=== PATIENT | female | born 1990 | race African-American/Black ===

== ENCOUNTER 2016-04-09 14:41 | Emergency (ER) | payer BC, MEDICAID ==
[~2016-04-09] VITALS: Ht 170.2 cm; Wt 77.3 kg
[~2016-04-09 14:41] MED LIST: AMOXICILLIN 50500 MG PO; CLEOCIN HC150 MG/CAP PO; FLEXERIL 1010 MG/TAB PO; MIRENA52 MG IU; MOTRIN 800800 MG/TAB PO; NAPROSYN500 MG PO; NO HOME MEDICATIONS; NORCO 325 MG-51 TAB PO; NORCO 325 MG-7.1 TAB PO; PEN-VEE K500 MG PO; PERCOCET 325 MG1 TA2 PO; PHENERGAN 25 TA25 MG PO; PRENATAL1 TA1 PO; TAMIFLU 75MG75 MG PO; ULTRAM 50MG TAB50 MG PO
[2016-04-09 14:42] VITALS: BP 143/99; TEMP 100
[2016-04-09 15:16] LABS: INFLUENZA B NEGATIVE
[2016-04-09] MEDS ORDERED: ZITHROMAX Z PA250 MG PO (15:32)
[2016-04-09 15:44] VITALS: PULSE 98
== END 2016-04-09 15:45 | disposition home or self-care (01) ==
LOC: COL.ER 14:41
PROVIDERS: Physician Assistant
DX: J18.9 Pneumonia, unspecified organism (principal); J45.909 Unspecified asthma, uncomplicated; F17.210 Nicotine dependence, cigarettes, uncomplicated

== ENCOUNTER 2016-05-08 17:52 | Emergency (ER) | payer BC, MEDICAID ==
[~2016-05-08] VITALS: Ht 170.2 cm; Wt 79.5 kg
[~2016-05-08 17:52] MED LIST changes: +ZITHROMAX Z PA250 MG PO
[2016-05-08 17:55] VITALS: TEMP 98.6
[2016-05-08] MEDS ORDERED: NORCO 325 MG-51 TAB PO (18:28)
[2016-05-08] MEDS ORDERED: AMOXICILLIN 50500 MG PO (18:28)
[2016-05-08 18:30] VITALS: BP 128/99; PULSE 73
== END 2016-05-08 18:34 | disposition home or self-care (01) ==
LOC: COL.ER 17:52
DX: S02.5XXA Fracture of tooth (traumatic), initial encounter for closed fracture (principal)

== ENCOUNTER 2016-05-17 00:50 | Emergency (ER) | payer BC, MEDICAID ==
[~2016-05-17] VITALS: Ht 170.2 cm; Wt 79.5 kg
[2016-05-17 00:58] VITALS: BP 129/89; TEMP 99.4
[2016-05-17 03:12] VITALS: PULSE 76
[2016-05-18] MEDS ORDERED: DOXYCYCLINE HY100 MG PO (13:09)
== END 2016-05-17 03:12 | disposition home or self-care (01) ==
LOC: COL.ER 00:50
DX: S93.402A Sprain of unspecified ligament of left ankle, initial encounter (principal); W10.8XXA Fall (on) (from) other stairs and steps, initial encounter; Y92.008 Other place in unspecified non-institutional (private) residence as the place of occurrence of the external cause

== ENCOUNTER 2016-05-18 11:53 | Emergency (ER) | payer BC, MEDICAID ==
[~2016-05-18] VITALS: Ht 170.2 cm; Wt 79.5 kg
[2016-05-18 12:00] VITALS: BP 136/87; PULSE 104; TEMP 98.8
[2016-05-18] MEDS ORDERED: DOXYCYCLINE HY100 MG PO (13:09)
== END 2016-05-18 13:28 | disposition home or self-care (01) ==
LOC: COL.ER 11:53
DX: S71.112A Laceration without foreign body, left thigh, initial encounter (principal); X99.1XXA Assault by knife, initial encounter; Z23 Encounter for immunization

== ENCOUNTER 2016-06-01 15:51 | Emergency (ER) | payer BC, MEDICAID ==
[~2016-06-01 15:51] MED LIST changes: +DOXYCYCLINE HY100 MG PO
[2016-06-01 15:58] VITALS: BP 129/87; PULSE 120; TEMP 101.2
[2016-06-01] MEDS ORDERED: AMOXICILLIN 8751 TAB PO (17:25)
== END 2016-06-01 16:28 | disposition home or self-care (01) ==
LOC: COL.ER 15:51
DX: S71.112D Laceration without foreign body, left thigh, subsequent encounter (principal)

== ENCOUNTER 2016-06-01 15:55 | Emergency (ER) | payer BC, MEDICAID ==
[~2016-06-01] VITALS: Ht 170.2 cm; Wt 79.5 kg
[2016-06-01 15:58] VITALS: TEMP 101.2
[2016-06-01 16:40] LABS: BASO % 0.2 % (0.0-2.0); EOS % 0.9 % (0-4.0); GRAN # 2.9 (1.4-6.5); GRAN % 62.6 % (42.2-75.2); HEMATOCRIT 41.9 % (37.0-47.0); HEMOGLOBIN 13.9 g/dl (12.5-16.0); LYMPH # 1.1 (1.2-3.4); LYMPH % 23.1 % (20.0-51.0); MEAN CELL VOLUME 94 fl (80.0-100.0); MEAN CORPUSCULAR HEMOGLOBIN 31 pg (27.0-31.0); MEAN CORPUSCULAR HGB CONC 33 g/dl (33.0-37.0); MEAN PLATELET VOLUME 9.6 fl (7.4-10.4); MONO # 0.6 (0.1-0.6); PLATELET COUNT 240 K/mm3 (130-400); RED BLOOD COUNT 4.48 M/mm3 (4.10-5.30); REDCELL DISTRIBUTION WIDTH-CV 13.4 % (11.5-14.5); WHITE BLOOD COUNT 4.6 K/mm3 (4.8-10.8)
[2016-06-01 16:48] LABS: ADJUSTED CALCIUM 9.1 mg/dL (8.4-10.2); ALBUMIN 3.7 gm/dL (3.5-5.0); BILIRUBIN,TOTAL 0.6 mg/dL (0.0-1.0); CALCIUM 8.9 mg/dL (8.4-10.2); CREATININE, serum 0.85 mg/dL (0.52-1.25); POTASSIUM 3.5 mmol/L (3.4-5.0); TOTAL PROTEIN 6.8 gm/dL (6.4-8.2)
[2016-06-01] MEDS ORDERED: AMOXICILLIN 8751 TAB PO (17:25)
[2016-06-01 17:36] LABS: INFLUENZA B NEGATIVE
[2016-06-01 18:18] VITALS: BP 110/78; PULSE 90
== END 2016-06-01 18:19 | disposition home or self-care (01) ==
LOC: COL.ER 15:55
PROVIDERS: Family Medicine
DX: J18.9 Pneumonia, unspecified organism (principal); J20.9 Acute bronchitis, unspecified; J45.909 Unspecified asthma, uncomplicated; R00.0 Tachycardia, unspecified
CPT/HCPCS: J0696; J2930; J7030

== ENCOUNTER 2016-07-18 02:43 | Emergency (ER) | payer BC, MEDICAID ==
[~2016-07-18] VITALS: Ht 170.2 cm; Wt 84.1 kg
[~2016-07-18 02:43] MED LIST changes: +AMOXICILLIN 8751 TAB PO
[2016-07-18 02:45] VITALS: BP 128/77; TEMP 98
[2016-07-18] MEDS ORDERED: PEN-VEE K500 MG PO (04:30)
[2016-07-18] MEDS ORDERED: TYLENOL W/COD1 UDTAB PO (04:30)
[2016-07-18] MEDS ORDERED: VOLTAREN 75 DR75 MG PO (04:30)
[2016-07-18 04:40] VITALS: PULSE 85
== END 2016-07-18 04:40 | disposition home or self-care (01) ==
LOC: COL.ER 02:43
DX: K08.89 Other specified disorders of teeth and supporting structures (principal)

== ENCOUNTER 2016-07-26 14:19 | Emergency (ER) | payer BC, MEDICAID ==
[~2016-07-26] VITALS: Ht 170.2 cm; Wt 84.1 kg
[~2016-07-26 14:19] MED LIST changes: +TYLENOL W/COD1 UDTAB PO; +VOLTAREN 75 DR75 MG PO
[2016-07-26 14:22] VITALS: BP 105/64; PULSE 100; TEMP 98.7
== END 2016-07-26 15:36 | disposition left against medical advice (07) ==
LOC: COL.ER 14:19
DX: M79.672 Pain in left foot (principal); Z53.21 Procedure and treatment not carried out due to patient leaving prior to being seen by health care provider

== ENCOUNTER 2016-08-03 09:31 | Emergency (ER) | payer BC, MEDICAID ==
[~2016-08-03] VITALS: Ht 170.2 cm; Wt 84.1 kg
[2016-08-03 09:40] VITALS: BP 116/55; TEMP 98.6
[2016-08-03 13:58] VITALS: PULSE 82
[2016-08-03] MEDS ORDERED: NORCO 325 MG-51 TAB PO (21:12)
== END 2016-08-03 14:00 | disposition home or self-care (01) ==
LOC: COL.ER 09:31
DX: S90.852A Superficial foreign body, left foot, initial encounter (principal); W22.8XXA Striking against or struck by other objects, initial encounter; S93.402A Sprain of unspecified ligament of left ankle, initial encounter; X50.1XXA Overexertion from prolonged static or awkward postures, initial encounter; Y92.830 Public park as the place of occurrence of the external cause

== ENCOUNTER 2016-08-03 20:37 | Emergency (ER) | payer BC, MEDICAID ==
[~2016-08-03] VITALS: Ht 170.2 cm; Wt 84.1 kg
[2016-08-03 20:48] VITALS: BP 135/83; PULSE 101; TEMP 98.8
[2016-08-03] MEDS ORDERED: NORCO 325 MG-51 TAB PO (21:12)
== END 2016-08-03 21:24 | disposition home or self-care (01) ==
LOC: COL.ER 20:37
DX: S90.852D Superficial foreign body, left foot, subsequent encounter (principal); W45.8XXD Other foreign body or object entering through skin, subsequent encounter

== ENCOUNTER 2017-04-12 12:03 | Emergency (ER) | payer SELFPAY ==
[~2017-04-12] VITALS: Ht 170.2 cm; Wt 75.0 kg
[2017-04-12 12:47] LABS: INFLUENZA A NEGATIVE; INFLUENZA B NEGATIVE
[2017-04-12 13:53] VITALS: TEMP 98.1
[2017-04-12 14:43] LABS: BASO # 0.1 (0.0-0.2); BASO % 0.5 % (0.0-2.0); EOS # 1.2 (0.0-0.7); EOS % 12.4 % (0-4.0); GRAN # 4.6 (1.4-6.5); GRAN % 49.3 % (42.2-75.2); HEMATOCRIT 45.2 % (37.0-47.0); LYMPH # 2.9 (1.2-3.4); MEAN CELL VOLUME 96 fl (80.0-100.0); MEAN CORPUSCULAR HEMOGLOBIN 32 pg (27.0-31.0); MEAN CORPUSCULAR HGB CONC 33 g/dl (33.0-37.0); MEAN PLATELET VOLUME 10.8 fl (7.4-10.4); MONO # 0.6 (0.1-0.6); MONO % 6.6 % (1.7-9.3); PLATELET COUNT 234 K/mm3 (130-400); REDCELL DISTRIBUTION WIDTH-CV 14.6 % (11.5-14.5)
[2017-04-12 14:59] LABS: ALBUMIN 4.9 gm/dL (3.5-5.0); BILIRUBIN,TOTAL 0.9 mg/dL (0.0-1.0); CALCIUM 9.9 mg/dL (8.4-10.2); CREATININE, serum 0.6 mg/dL (0.52-1.25); POTASSIUM 4.3 mmol/L (3.4-5.0)
[2017-04-12 15:18] VITALS: BP 117/84; PULSE 99
== END 2017-04-12 15:21 | disposition home or self-care (01) ==
LOC: COL.ER 12:03
PROVIDERS: Physician Assistant
DX: J11.1 Influenza due to unidentified influenza virus with other respiratory manifestations (principal); F17.210 Nicotine dependence, cigarettes, uncomplicated; Z98.890 Other specified postprocedural states
CPT/HCPCS: J7030

== ENCOUNTER 2017-11-03 11:12 | Emergency (ER) | payer SELFPAY ==
[~2017-11-03] VITALS: Ht 170.2 cm; Wt 68.2 kg
[2017-11-03 11:26] VITALS: TEMP 98.2
[2017-11-03 11:51] LABS: BASO # 0.1 (0.0-0.2); BASO % 0.4 % (0.0-2.0); EOS # 1.8 (0.0-0.7); EOS % 13.8 % (0-4.0); GRAN # 8.5 (1.4-6.5); GRAN % 63.7 % (42.2-75.2); HEMATOCRIT 40.8 % (37.0-47.0); HEMOGLOBIN 14.1 g/dl (12.5-16.0); LYMPH # 2.2 (1.2-3.4); LYMPH % 16.3 % (20.0-51.0); MEAN CELL VOLUME 94 fl (80.0-100.0); MEAN CORPUSCULAR HEMOGLOBIN 32 pg (27.0-31.0); MEAN CORPUSCULAR HGB CONC 35 g/dl (33.0-37.0); MEAN PLATELET VOLUME 9.9 fl (7.4-10.4); MONO # 0.7 (0.1-0.6); MONO % 5.5 % (1.7-9.3); PLATELET COUNT 249 K/mm3 (130-400); RED BLOOD COUNT 4.35 M/mm3 (4.10-5.30); REDCELL DISTRIBUTION WIDTH-CV 12.7 % (11.5-14.5)
[2017-11-03 12:02] LABS: ALBUMIN 4.2 gm/dL (3.5-5.0); BILIRUBIN,TOTAL 0.4 mg/dL (0.0-1.0); CALCIUM 8.7 mg/dL (8.4-10.2); CREATININE, serum 0.65 mg/dL (0.52-1.25); POTASSIUM 3.4 mmol/L (3.4-5.0); TOTAL PROTEIN 7.7 gm/dL (6.4-8.2)
[2017-11-03 14:01] LABS: COLLECTION METHOD CLEAN CATCH
[2017-11-03 14:07] LABS: MUCOUS Present /lpf; PH 5 (5-8); SQUAMOUS EPITHELIAL 0-2 /hpf; URINE APPEARANCE Clear; URINE BACTERIA None Seen /hpf; URINE BILIRUBIN Negative (NEGATIVE); URINE BLOOD Negative (NEGATIVE); URINE COLOR Yellow; URINE GLUCOSE Negative (NEGATIVE); URINE KETONE Negative (NEGATIVE); URINE LEUKOCYTE ESTERASE Negative (NEGATIVE); URINE NITRATE Negative (NEGATIVE); URINE PROTEIN(semi-quant) Negative (NEGATIVE); URINE RBC 0-2 /hpf; URINE UROBILINOGEN Negative (NEGATIVE)
[2017-11-03 14:57] VITALS: BP 126/80; PULSE 99
[2017-11-03] MEDS ORDERED: PROAIR HFA0.09 MG/AC IH (14:57)
== END 2017-11-03 14:55 | disposition home or self-care (01) ==
LOC: COL.ER 11:12
PROVIDERS: Emergency Medicine
DX: O20.9 Hemorrhage in early pregnancy, unspecified (principal); O99.511 Diseases of the respiratory system complicating pregnancy, first trimester; J45.909 Unspecified asthma, uncomplicated; Z98.890 Other specified postprocedural states; Z3A.01 Less than 8 weeks gestation of pregnancy
CPT/HCPCS: J7030

== ENCOUNTER 2017-11-05 08:17 | Emergency (ER) | payer SELFPAY ==
[~2017-11-05] VITALS: Ht 170.2 cm; Wt 70.5 kg
[~2017-11-05 08:17] MED LIST changes: +PROAIR HFA0.09 MG/AC IH
[2017-11-05 08:21] VITALS: BP 115/78; TEMP 98.8
[2017-11-05] MEDS ORDERED: AMOXICILLIN 8751 TAB PO (10:00)
[2017-11-05 10:12] VITALS: PULSE 98
== END 2017-11-05 10:13 | disposition home or self-care (01) ==
LOC: COL.ER 08:17
DX: J20.9 Acute bronchitis, unspecified (principal); J32.9 Chronic sinusitis, unspecified; J45.909 Unspecified asthma, uncomplicated

== ENCOUNTER 2017-11-12 12:03 | Emergency (ER) | payer SELFPAY ==
[~2017-11-12] VITALS: Ht 170.2 cm; Wt 72.7 kg
[2017-11-12 12:12] VITALS: BP 123/86; TEMP 98.9
[2017-11-12 13:23] LABS: BASO % 0.5 % (0.0-2.0); EOS # 0.3 (0.0-0.7); EOS % 4.7 % (0-4.0); GRAN # 4.1 (1.4-6.5); GRAN % 56.2 % (42.2-75.2); HEMOGLOBIN 12.2 g/dl (12.5-16.0); LYMPH # 2.4 (1.2-3.4); LYMPH % 32.7 % (20.0-51.0); MEAN CELL VOLUME 95 fl (80.0-100.0); MEAN CORPUSCULAR HEMOGLOBIN 32 pg (27.0-31.0); MEAN CORPUSCULAR HGB CONC 34 g/dl (33.0-37.0); MEAN PLATELET VOLUME 9.3 fl (7.4-10.4); MONO # 0.4 (0.1-0.6); MONO % 5.6 % (1.7-9.3); PLATELET COUNT 292 K/mm3 (130-400); RED BLOOD COUNT 3.79 M/mm3 (4.10-5.30); REDCELL DISTRIBUTION WIDTH-CV 13.2 % (11.5-14.5)
[2017-11-12 13:42] LABS: CALCIUM 8.1 mg/dL (8.4-10.2); CREATININE, serum 0.62 mg/dL (0.52-1.25); POTASSIUM 3.6 mmol/L (3.4-5.0)
[2017-11-12 14:48] VITALS: PULSE 75
== END 2017-11-12 14:48 | disposition home or self-care (01) ==
LOC: COL.ER 12:03
PROVIDERS: Emergency Medicine
DX: O03.9 Complete or unspecified spontaneous abortion without complication (principal)

== ENCOUNTER 2018-06-02 08:21 | Emergency (ER) | payer SELFPAY ==
[~2018-06-02] VITALS: Ht 170.2 cm; Wt 77.3 kg
[2018-06-02 08:24] VITALS: BP 112/72
[2018-06-02] MEDS ORDERED: TYLENOL 500MG500 MG PO (08:31)
[2018-06-02] MEDS ORDERED: NAPROSYN 2250 MG/TAB PO (08:32)
[2018-06-02] MEDS ORDERED: TYLENOL 325MG325 MG PO (08:36)
[2018-06-02] MEDS ORDERED: NAPROSYN500 MG PO (08:36)
[2018-06-02 10:08] VITALS: PULSE 69; TEMP 97.3
== END 2018-06-02 10:08 | disposition home or self-care (01) ==
LOC: COL.ER 08:21
DX: J10.1 Influenza due to other identified influenza virus with other respiratory manifestations (principal); J45.909 Unspecified asthma, uncomplicated; F17.210 Nicotine dependence, cigarettes, uncomplicated

== ENCOUNTER 2020-06-01 21:45 | Emergency (ER) | payer MEDICAID ==
[~2020-06-01] VITALS: Ht 172.7 cm; Wt 100.0 kg
[~2020-06-01 21:45] MED LIST changes: +NAPROSYN 2250 MG/TAB PO; +TYLENOL 325MG325 MG PO; +TYLENOL 500MG500 MG PO
[2020-06-01 21:48] VITALS: BP 207/115; TEMP 98.2
[2020-06-01] MEDS ORDERED: VALIUM 2MG T2 MG/TAB PO (21:54)
[2020-06-01] MEDS ORDERED: ZOLOFT 25MG25 MG PO (21:54)
[2020-06-01] MEDS ORDERED: AMBIEN 5MG TABLE5 MG PO (21:55)
[2020-06-01] MEDS ORDERED: ABILIFY5 MG PO (21:55)
[2020-06-01 22:07] LABS: COLLECTION METHOD CLEAN CATCH
[2020-06-01 22:12] LABS: PH 7 (5-8); SQUAMOUS EPITHELIAL 0-2 /hpf; URINE APPEARANCE Clear; URINE BACTERIA Rare /hpf; URINE BILIRUBIN Negative (NEGATIVE); URINE BLOOD Negative (NEGATIVE); URINE COLOR Yellow; URINE GLUCOSE Negative (NEGATIVE); URINE KETONE Negative (NEGATIVE); URINE LEUKOCYTE ESTERASE Negative (NEGATIVE); URINE NITRATE Negative (NEGATIVE); URINE PROTEIN(semi-quant) Negative (NEGATIVE); URINE RBC None Seen /hpf; URINE UROBILINOGEN Negative (NEGATIVE)
[2020-06-01 23:02] LABS: BASO % 0.3 % (0.0-2.0); EOS # 0.2 (0.0-0.7); EOS % 1.9 % (0-4.0); GRAN # 5.4 (1.4-6.5); GRAN % 59.6 % (42.2-75.2); HEMATOCRIT 37.1 % (37.0-47.0); HEMOGLOBIN 12.3 g/dl (12.5-16.0); LYMPH % 32.4 % (20.0-51.0); MEAN CELL VOLUME 91 fl (80.0-100.0); MEAN CORPUSCULAR HEMOGLOBIN 30 pg (27.0-31.0); MEAN CORPUSCULAR HGB CONC 33 g/dl (33.0-37.0); MONO # 0.5 (0.1-0.6); MONO % 5.4 % (1.7-9.3); PLATELET COUNT 233 K/mm3 (130-400); RED BLOOD COUNT 4.07 M/mm3 (4.10-5.30); REDCELL DISTRIBUTION WIDTH-CV 15.4 % (11.5-14.5)
[2020-06-01 23:47] VITALS: PULSE 94
== END 2020-06-01 23:52 | disposition home or self-care (01) ==
LOC: COL.ER 21:45
PROVIDERS: Emergency Medicine
DX: O26.891 Other specified pregnancy related conditions, first trimester (principal); R10.2 Pelvic and perineal pain; O99.331 Smoking (tobacco) complicating pregnancy, first trimester; F17.210 Nicotine dependence, cigarettes, uncomplicated; Z3A.00 Weeks of gestation of pregnancy not specified

== ENCOUNTER 2020-07-23 14:29 | Emergency (ER) | payer MEDICAID ==
[~2020-07-23] VITALS: Ht 172.7 cm; Wt 109.1 kg
[~2020-07-23 14:29] MED LIST changes: +ABILIFY5 MG PO; +AMBIEN 5MG TABLE5 MG PO; +VALIUM 2MG T2 MG/TAB PO; +ZOLOFT 25MG25 MG PO
[2020-07-23 15:06] VITALS: TEMP 97.9
[2020-07-23 16:01] LABS: BASO % 0.4 % (0.0-2.0); EOS # 0.2 (0.0-0.7); EOS % 2.3 % (0-4.0); GRAN # 4.6 (1.4-6.5); GRAN % 58.3 % (42.2-75.2); HEMATOCRIT 39.6 % (37.0-47.0); HEMOGLOBIN 13.3 g/dl (12.5-16.0); LYMPH # 2.6 (1.2-3.4); LYMPH % 32.9 % (20.0-51.0); MEAN CELL VOLUME 93 fl (80.0-100.0); MEAN CORPUSCULAR HEMOGLOBIN 31 pg (27.0-31.0); MEAN CORPUSCULAR HGB CONC 34 g/dl (33.0-37.0); MEAN PLATELET VOLUME 10.2 fl (7.4-10.4); MONO # 0.5 (0.1-0.6); MONO % 5.8 % (1.7-9.3); PLATELET COUNT 278 K/mm3 (130-400); RED BLOOD COUNT 4.27 M/mm3 (4.10-5.30); REDCELL DISTRIBUTION WIDTH-CV 14.7 % (11.5-14.5)
[2020-07-23 16:02] LABS: COLLECTION METHOD CLEAN CATCH
[2020-07-23 16:11] LABS: PH 7 (5-8); SQUAMOUS EPITHELIAL 0-2 /hpf; URINE APPEARANCE Clear; URINE BACTERIA Rare /hpf; URINE BILIRUBIN Negative (NEGATIVE); URINE BLOOD 3+ (NEGATIVE); URINE COLOR Straw; URINE GLUCOSE Negative (NEGATIVE); URINE KETONE Negative (NEGATIVE); URINE LEUKOCYTE ESTERASE Negative (NEGATIVE); URINE NITRATE Negative (NEGATIVE); URINE PROTEIN(semi-quant) Negative (NEGATIVE); URINE UROBILINOGEN Negative (NEGATIVE)
[2020-07-23 17:14] VITALS: BP 108/86; PULSE 81
== END 2020-07-23 17:14 | disposition home or self-care (01) ==
LOC: COL.ER 14:29
PROVIDERS: Nurse Practitioner
DX: O20.0 Threatened abortion (principal); O99.331 Smoking (tobacco) complicating pregnancy, first trimester; F17.210 Nicotine dependence, cigarettes, uncomplicated; Z3A.08 8 weeks gestation of pregnancy

== ENCOUNTER 2021-01-28 11:51 | Emergency (ER) | payer MEDICAID ==
[~2021-01-28] VITALS: Ht 172.7 cm; Wt 118.2 kg
[2021-01-28 11:58] VITALS: TEMP 98.2
[2021-01-28 12:07] LABS: COLLECTION METHOD CLEAN CATCH
[2021-01-28 12:25] LABS: BUDDING YEAST Present /hpf; MUCOUS Present /lpf; PH 7 (5-8); SQUAMOUS EPITHELIAL 0-2 /hpf; URINE APPEARANCE Cloudy; URINE BACTERIA Rare /hpf; URINE BILIRUBIN Negative (NEGATIVE); URINE BLOOD Negative (NEGATIVE); URINE COLOR Yellow; URINE GLUCOSE Negative (NEGATIVE); URINE KETONE Negative (NEGATIVE); URINE LEUKOCYTE ESTERASE Negative (NEGATIVE); URINE NITRATE Negative (NEGATIVE); URINE PROTEIN(semi-quant) Negative (NEGATIVE); URINE RBC 0-2 /hpf; URINE UROBILINOGEN Negative (NEGATIVE)
[2021-01-28 13:48] VITALS: BP 120/68; PULSE 75
== END 2021-01-28 13:50 | disposition home or self-care (01) ==
LOC: COL.ER 11:51
PROVIDERS: Nurse Practitioner
DX: O99.891 Other specified diseases and conditions complicating pregnancy (principal); M54.50 Low back pain, unspecified; O99.332 Smoking (tobacco) complicating pregnancy, second trimester; F17.210 Nicotine dependence, cigarettes, uncomplicated; Z3A.17 17 weeks gestation of pregnancy